=== PATIENT | male | born 1960 | race Hispanic/Latino ===

== ENCOUNTER 2021-01-07 15:34 | Emergency (ER) | payer SELFPAY ==
[~2021-01-07 15:34] MED LIST: Iopamidol 370 76% 125 ML VIAL FS ONE; Rocuronium Bromide 10 MG/ML (10ML VIAL) ONE; Sodium Chloride 0.9% 100 ML BAG ONE
[2021-01-07 16:32] LABS: ALT (SGPT) 42 U/L (8-55); AST (SGOT) 58 U/L (5-34); Albumin 3.2 g/dL (3.4-4.8); Alkaline Phosphatase 70 U/L (40-110); Anion Gap 17 mmol/L (10-20); BUN (Urea Nitrogen) 17 mg/dL (8.4-25.7); Bilirubin, Total 1.2 mg/dL (0.2-1.2); Calc. Creatinine Clearance 0 mL/min (70-130); Calcium 8.4 mg/dL (7.8-10.44); Carbon Dioxide 21 mmol/L (23-31); Chloride 101 mmol/L (98-107); Globulin 3.9 g/dL (2.4-3.5); Glucose 531 mg/dL (80-115); Magnesium 1.8 mg/dL (1.6-2.6); Potassium 4.3 mmol/L (3.5-5.1); Protein, Total 7.1 g/dL (5.8-8.1); Sodium 135 mmol/L (136-145)
[2021-01-07] MEDS ORDERED: Piperacillin/Tazobactam 4.5 GM VIAL ONE (16:36)
[2021-01-07] MEDS ORDERED: Sodium Chloride 0.9% 100 ML ONE (16:36)
[2021-01-07] MEDS ORDERED: Ibuprofen 400 MG TAB ONE (16:36)
[2021-01-07 16:50] LABS: CKMB 2.3 ng/mL (0-6.6)
[2021-01-07 16:56] LABS: #Lymphocytes 0.4 thou/uL (1.20-3.40); #Monocytes 0.4 thou/uL (0.11-0.59); #Neutrophils 4.8 thou/uL (1.40-6.50); %Basophils 0.4 % (0.0-1.0); %Lymphocytes 7.5 % (21.0-51.0); %Monocytes 7.6 % (0.0-10.0); %Neutrophils 84.6 % (42.0-75.0); Hemoglobin 18.1 g/dL (14.0-18.0); Hypochromia SLIGHT = 6-15 cells (100X) (0-5/hpf); MDiff Complete? YES; Mean Corpuscular HGB CONC 32.6 g/dL (32.0-36.0); Mean Corpuscular Hemoglobin 29.8 pg (27.0-31.0); Mean Corpuscular Volume 91.4 fL (78.0-98.0); Mean Platelet Volume 12.6 fL (7.4-10.4); Platelet Count 165 thou/uL (130-400); Platelet Morphology Comment Appears Adequate; RBC Distribution Width 11.7 % (11.5-14.5); RBC Morphology Normal; Red Blood Cell (RBC) Count 6.09 mill/uL (4.70-6.10); White Blood Cell (WBC) Count 5.7 thou/uL (4.8-10.8)
[2021-01-07] MEDS ORDERED: Propofol 1,000 MG/100 ML VIAL IV ONE (17:18)
[2021-01-07] MEDS ORDERED: Ketamine 50 MG/ML (10ML VIAL) ONE (17:20)
[2021-01-07] MEDS ORDERED: Fentanyl 100 MCG/2 ML VIAL ONE (17:21)
[2021-01-07 17:26] LABS: Base Excess-Venous -1.9 mmol/L (-2.0 to 3.0); Bicarbonate (HCO3v) 21.7 mmol/L (22.0-28.0); CO2 Tension (PvCO2) 34.1 mmHg (42.0-51.0); Calcium, Ionized 0.98 mmol/L (1.15-1.33); Chloride 103 mmol/L (98-107); Hemoglobin - Calc 20.6 g/dL (14.0-18.0); Potassium 4.6 mmol/L (3.5-5.1); Sodium 137 mmol/L (138-145); T. Carbon Dioxide 22.8 mmol/L (22.0-28.0)
[2021-01-07] MEDS ORDERED: Insulin Regular 300 UNITS/3 ML VIAL ONE (18:07)
== END 2021-01-07 18:58 | disposition short-term general hospital (02) ==
LOC: MADERS 15:34
DX: U07.1 COVID-19 (principal); J12.82 Pneumonia due to coronavirus disease 2019; J96.90 Respiratory failure, unspecified, unspecified whether with hypoxia or hypercapnia; E11.65 Type 2 diabetes mellitus with hyperglycemia; E11.9 Type 2 diabetes mellitus without complications; Z79.84 Long term (current) use of oral hypoglycemic drugs
CPT/HCPCS: 31500; 36416; 51702; 71045; 71275; 80053; 82330; 82553; 82803; 83605; 83735; 83880; 84484; 85025; 85379; 93005; 94760; 96365; 96367; 96376; 99292; J1815; J2543; J2704; J3010; J3490; J7620; Q9967